=== PATIENT | male | born 2000 | race Caucasian/White ===

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

== ENCOUNTER 2020-06-09 04:51 | Emergency (ER) | payer OTHER ==
[~2020-06-09] VITALS: Ht 177.8 cm; Wt 80.6 kg
--- NOTE | 2020-06-09 05:00 | NUR ---
LATE ENTRY D/T PT CARE: PT AMBULATED BACK TO ROOM WITH A SMOOTH AND STEADY GAIT. PT RESTING ON BRAD, STATES HE CAME IN FOR A TAYLOR THAT HAS LASTED 3 DAYS WITH LIGHT SENSITIVITY. PT STATES THIS IS THE FIRST MIGRAINE SINCE HE WAS A CHILD. PT PROVIDED WARM BLANKETS FOR COMFORT, APPEARS COMFORTABLE. NAD, BED IN LOWEST, CALL LIGHT ON LAP, WCTM.
[2020-06-09] MEDS ORDERED: ACETAMINOPHEN 500 MG TABLET PO ONE (05:30)
[2020-06-09] MEDS ORDERED: KETOROLAC 30 MG/1 ML IM ONE (05:30)
[2020-06-09] MEDS ORDERED: ACETAMINOPHEN 500 MG TABLET ONE (05:59)
[2020-06-09] MEDS ORDERED: KETOROLAC 30 MG/1 ML ONE (05:59)
--- NOTE | 2020-06-09 06:00 | NUR ---
PT MEDICATED PER SEP, RESTING ON GURNEY, NO CHANGE IN CONDITION WCTM.
[2020-06-09 06:21] LABS: BASOPHILS % (AUTO) 1 % (0-1); EOSINOPHILS % (AUTO) 0 % (1-7); LYMPHOCYTES % (AUTO) 45 % (22-44); MEAN CORPUSCULAR HEMOGLOBIN 29.7 pg (27.5-34.5); MEAN PLATELET VOLUME 9.4 fL (7.4-10.4); MONOCYTES % (AUTO) 11 % (2-9); NEUTROPHILS % (AUTO) 44 % (42-75); PLATELET COUNT 177 x10^3/uL (130-400); RED BLOOD COUNT 5.02 x10^6/uL (4.38-5.82); RED CELL DISTRIBUTION WIDTH 13.1 % (9.4-14.8)
[2020-06-09 06:40] LABS: MD NO
--- NOTE | 2020-06-09 06:52 | NUR ---
BEDSIDE REPORT TO REGINA TAPIA, PT CARE TRANSFERRED AT THIS TIME. PT RESTING WITH EYES CLOSED, NAD, EVEN AND UNLABORED RESPIRATIONS, APPEARS COMFORTABLE, NAD
--- NOTE | 2020-06-09 06:55 | NUR ---
assumed care of pt. report nubia Nickerson RN. pt here for TAYLOR. pt has been medicated for pain and is currently sleeping. no apparent distress. no family at bedside. lights dimmed for comfort awaiting test results
[2020-06-09 08:10] VITALS: BP 105/71
[2020-06-09 08:44] LABS: ANION GAP 6 mmol/L (5-15); CALCIUM 9.1 mg/dL (8.5-10.1); CHLORIDE 107 mmol/L (98-107); CREATININE 0.98 mg/dL (0.7-1.3)
== END 2020-06-09 08:13 | disposition home or self-care (01) ==
LOC: ED 06:56
DX: B27.90 Infectious mononucleosis, unspecified without complication (principal); Z20.828 Contact with and (suspected) exposure to other viral communicable diseases; J02.9 Acute pharyngitis, unspecified; R51.9 Headache, unspecified
CPT/HCPCS: 36415; 80048; 82040; 83880; 85025; 86308; 87081; 87635; 87880; 96372; 99285; J1885

== ENCOUNTER 2021-03-10 14:27 | Emergency (ER) | payer OTHER | END 2021-03-10 14:48 | disposition left against medical advice (07) | LOC: ED 14:30 | DX: R11.10 Vomiting, unspecified (principal); R51.9 Headache, unspecified; Z53.21 Procedure and treatment not carried out due to patient leaving prior to being seen by health care provider ==